=== PATIENT | male | born 1960 | race Caucasian/White ===

== ENCOUNTER 2018-04-12 15:42 | Emergency (ER) | payer OTHER, SELFPAY ==
--- NOTE | 2018-04-12 15:42 | DT_ITS ---
This patient was seen during an EMR downtime April 09, 2018 - April 16, 2018. This patient may have a combination of paper and electronic documentation or all paper documentation. All documentation is viewable within the e-chart portion of [facility] for each patient visit.
== END 2018-04-12 19:31 | disposition home or self-care (01) ==
LOC: ED 04-13 09:39
PROVIDERS: Emergency Provider Emergency Medicine; Family Provider Physician Assistant; PCP Physician Assistant
DX: T78.3XXA Angioneurotic edema, initial encounter (principal); I10 Essential (primary) hypertension; F17.200 Nicotine dependence, unspecified, uncomplicated
CPT/HCPCS: 96374; 96375; 99284; A4216

== ENCOUNTER 2020-01-08 15:02 | Emergency (ER) | payer OTHER, SELFPAY ==
[2020-01-08 15:05] VITALS: BP 162/103; PULSE 123; RESP 18; TEMP 36.6; O2SAT 99; BMI 29.7
--- NOTE | 2020-01-08 15:13 | EKG12_ITS ---
Test Reason : HYPERTENSON Blood Pressure : / mmHG Vent. Rate : 095 BPM Atrial Rate : 095 BPM P-R Int : 182 ms QRS Dur : 086 ms QT Int : 332 ms P-R-T Axes : 051 055 012 degrees QTc Int : 417 ms Normal sinus rhythm Normal ECG Confirmed by JET PACHECO, JOSUE ([id number]), newspaper or periodical editor REX BLANCAS ([id number]) on 01/10/2020 8:11:18 AM Referred By: KWAKU Confirmed By:PERICO CHAUDHARY MD
--- NOTE | 2020-01-08 15:30 | RAD_ITS ---
STUDY: X-RAY CHEST REASON FOR EXAM: Male, 59 years old. HTN TECHNIQUE: Single AP portable view of the chest. COMPARISON: None. FINDINGS: Hyperinflation. Mild increased markings at the lung bases suggestive of scarring. There is no demonstrated pleural abnormality. Normal size heart. Normal mediastinum and pepe. Normal visualized pulmonary arteries. There is atherosclerotic calcification of the aortic arch with tortuosity. There are diffuse degenerative changes of the visualized thoracic spine. Mild dextroscoliosis. Normal visualized ribs, clavicles, and shoulders. There is no demonstrated abnormality of the visualized soft tissue structures of the upper abdomen. RAD/Chest 1 View (Portable) IMPRESSION: Findings suggest some mild scarring at the lung bases. Electronically Signed: Rodney Zhang, at 15:47 EST , Service support ,
--- NOTE | 2020-01-08 15:30 | RAD_ITS ---
STUDY: X-RAY - RIGHT KNEE REASON FOR EXAM: Male, 59 years old. PAIN FOR COUPLE DAYS, NKI TECHNIQUE: 4 view(s) of the knee. COMPARISON: None. FINDINGS: Normal visualized distal femur. Normal visualized proximal tibia and fibula. Normal proximal tibiofibular articulation. Normal medial femorotibial compartment. Normal lateral femorotibial compartment. Normal patellofemoral articulation. The soft tissue structures are unremarkable. RAD/Knee 4 or More Views IMPRESSION: Normal x-ray examination of the knee. Electronically Signed: Rodney Zhang, at 15:48 EST , Service support ,
--- NOTE | 2020-01-08 15:30 | ED.RN ---
NO OLD EKG
[2020-01-08 15:38] LABS: Absolute Lymphocyte Count 2.46 X10^3/uL (0.83-4.51); Absolute Neutrophil Count 7.4 X10^3/uL (2.0-7.7); Basophil# 0.08 X10^3/uL; Basophil% 0.7 % (0-1); Eosinophil# 0.13 X10^3/uL; Eosinophils% 1.2 % (0-5); Hematocrit 49.7 % (40-54); Hemoglobin 17.3 g/dL (13.0-16.5); Lymphocyte # 2.46 X10^3/ul (4.0); Lymphocyte % 22.3 % (19-41); Mean Corp Hgb Conc 34.8 g/dL (32-36); Mean Corpuscular Hgb 33.2 pg (27.0-32.0); Mean Corpuscular Volume 95.4 fL (80-94); Mean Platelet Vol. 10.2 fl (6.2-12.0); Monocyte# 0.84 X10^3/uL; Monocyte% 7.6 % (0-10); NRBC Flagged by Analyzer 0 % (0-5); Neutrophil # 7.44 X10^3/uL (2.7-7.7); Neutrophil % 67.3 % (47-70); Platelet Count 205 K/mm3 (150-450); RBC Distribution Width CV 12.1 % (11.6-14.6); RBC Distribution Width SD 42.4 fl (35.1-43.9); Red Blood Count 5.21 M/mm3 (4.6-6.2); White Blood Count 11.1 K/mm3 (4.4-11.0)
--- NOTE | 2020-01-08 16:21 | VDLE_ITS ---
Reason For Study: Pain RIGHT LEFT GSV is normal. Lt CFV appears patent with color and doppler Rt CFV and SFJ appear patent with color and only. Pt unable to tolerate compression. doppler only. Pt unable to tolerate compression. FV is compressible, spontaneous, phasic, competent and demonstrates normal augmentation. POP V is compressible, spontaneous, phasic, competent and demonstrates normal augmentation. T/P Trunk is compressible. PTV is compressible. RT PerV is compressible. Procedure Exam performed portable in ED. A preliminary report was called and/or faxed to [facility]. Interpretation Summary There is no evidence of right lower extremity deep vein thrombosis. Patient unable to tolerate compression of bilateral common femoral veins. Color-flow demonstrates patency bilaterally. Patent and compressible right great saphenous vein Ordering Physician: Haroldo Louise Referring Physician: Marcial Saab Performed By: Olive Lynn RVT
[2020-01-08] MEDS: 0.9% Normal Saline 1,000 ML 1000 ML IV (16:29)
[2020-01-08 16:52] LABS: Anion Gap 8 (5-15); BUN 16 mg/dL (7-18); BUN/Creat Ratio 17.7 RATIO (10-20); Calcium,Total 9.1 mg/dL (8.5-10.1); Chloride 106 mmol/L (98-107); EST Glomerular Filtration Rate 91 mL/min (>60); Est Glom Filt Rate - Afr Amer 110 mL/min (>60); Estimated Creatinine Clearance 90.12 ml/min; Glucose 120 mg/dL (74-106); Potassium 3.9 mmol/L (3.5-5.1); Sodium Level 139 mmol/L (136-145)
[2020-01-08 16:55] LABS: Thyroid Stim Hormone (TSH) 1.76 uIU/mL (0.358-3.74)
[2020-01-08 17:37] VITALS: BP 136/98; PULSE 88; RESP 22; O2SAT 96
--- NOTE | 2020-01-08 17:58 | ED.VISSUMM ---
- ER Visit Summary Date of Service: 01/08/20 Chief Complaint: Right knee pain and high blood pressure History of Present Illness: The patient is a [address] William Serrano. Reports he has had right knee pain for the past week. Is gradually gotten worse. Says sharp pain that is 1010 at worst and 3-10 currently. Is worsened by elevating it or walking. Is relieved by nothing. States the pain is worse at night. He denies any recent trauma. No fall, MVA, or change in activity. Patient went to the urgent care today and was told that his blood pressure was elevated was sent to the emergency department. His review of systems is negative. Physical Examination: Vitals: Stable. Afebrile. General: Well-nourished and well-developed. Head: Normocephalic atraumatic. Neck: Supple, no lymphadenopathy. No JVD. Nontender. Cardiovascular: Regular rate and rhythm. No murmurs. Respiratory: No respiratory distress. Clear to auscultation bilaterally. Abdominal: Soft, nontender, nondistended, normal bowel sounds. No guarding, rebound, or peritoneal signs. Back: Nontender. Extremities: Right knee shows no appreciable joint effusion. He has good range of motion with minimal difficulty. There is no overlying erythema or warmth to suggest a septic joint. Has moderate tensional patient in the popliteal fossa and mild tenderness palpation laterally. There is no pain or ligamentous instability with anterior posterior drawer or medial/lateral stress he has a 2+ dorsalis pedis pulse.. Skin: Normal color, no rash. Neurologic: Alert and oriented ?3. Cranial nerves II through XII are intact. Normal strength and sensation. Psych: Normal affect. Test Results: EKG sinus at 95 nonspecific changes. Troponin is negative. Chem-7 shows a glucose of 120. CBC shows a white count 11.1 and 17.3 hemoglobin. TSH is 1.76. Clinical Impression(s) from Imaging Studies Chest X-Ray 01/08/20 15:30 IMPRESSION: Findings suggest some mild scarring at the lung bases. Electronically Signed: Rodney Zhang, at 15:47 EST , Service support , Knee X-Ray 01/08/20 15:30 IMPRESSION: Normal x-ray examination of the knee. Electronically Signed: Rodney Zhang, at 15:48 EST , Service support , Emergency Department Course and Treatment: Patient refused pain medications. He is resting comfortably. His blood pressure came down to 136/98 with no treatment. Treatment Plan: Patient be discharged with [facility]. Instructed follow-up Dr. William Serrano III in 1 week if not improving. Does understand that he may require an MRI to find the source of his pain. With him having pain at night possibility bursitis was discussed. We also discussed possibility of meniscus injury. Return to the emergency department for any worsening symptoms. Disposition: To home in improved and stable condition. Impression: 1. Right knee pain. 2. Hypertension. This note was generated with [employer] dictation software. It may contain incorrect words, spelling, and punctuation that were not noted in review of the chart prior to signing ED Disposition - Plan for ED Patient: Disposition: Home or Assisted Living Instructions: HYPERTENSION, To Be Confirmed, KNEE PAIN, Uncertain Cause Prescriptions: Hydrocodone Bitart/Apap 5-325 [[facility] 5MG-325MG] 1 tab PO Q6H PRN PRN 3 Days #10 tab PRN Reason: Pain Prescription Printed Referrals: William Serrano III, MD [Primary Care Provider] - 1 Week
[2020-01-08 18:23] VITALS: BP 144/91; PULSE 84; RESP 22; O2SAT 97
== END 2020-01-08 18:24 | disposition home or self-care (01) ==
LOC: ED 16:30
PROVIDERS: Emergency Provider Emergency Medicine; PCP Family Medicine
DX: M25.561 Pain in right knee (principal); I10 Essential (primary) hypertension; Z72.0 Tobacco use
CPT/HCPCS: 71045; 73564; 80048; 84443; 84484; 85025; 93005; 93971; 96360; 99283; J7030; A4216